=== PATIENT | male | born 1965 | race African-American/Black ===

== ENCOUNTER 2024-02-04 06:25 | Emergency (ER) | payer BC ==
[~2024-02-04] VITALS: Ht 185.4 cm; Wt 108.6 kg
[2024-02-04 07:15] VITALS: BP 122/84; PULSE 82; RESP 17; TEMP 98.9; O2SAT 97
== END 2024-02-04 07:17 | disposition home or self-care (01) ==
LOC: ER 06:25
DX: Z00.00 Encounter for general adult medical examination without abnormal findings (principal); E11.649 Type 2 diabetes mellitus with hypoglycemia without coma; I10 Essential (primary) hypertension